=== PATIENT | male | born 1980 ===

== ENCOUNTER 2018-06-24 10:48 | Emergency (ER) | payer OTHER ==
[2018-06-24 11:22] VITALS: O2SAT 98; BMI 36.3
[2018-06-24] MEDS ORDERED: Clindamycin 600mg/50ml NS 600 MG/50 ML BAG IVPB ONE (12:37)
[2018-06-24] MEDS ORDERED: Sodium Chloride 0.9% 1,000 ML IV STA (12:37)
[2018-06-24 13:44] LABS: BASO # 0.1 K/uL (0.0-0.2); BASO % 0.9 % (0.0-2.0); EOS # 0.5 K/uL (0.0-0.7); EOS % 8.8 % (0.0-4.0); HEMOGLOBIN 14.8 g/dL (12.0-18.0); LYMPH # 1.7 K/uL (1.0-4.3); LYMPH % 31.6 % (20.0-40.0); MEAN CORPUSCULAR HEMOGLOBIN 26.7 pg (27.0-31.0); MEAN CORPUSCULAR HGB CONC 33.8 g/dL (33.0-37.0); MEAN PLATELET VOLUME 8.7 fl (7.2-11.7); MONO # 0.4 K/uL (0.0-0.8); MONO % 7.5 % (0.0-10.0); NEUT # 2.7 K/uL (1.8-7.0); NEUT % 51.2 % (50.0-75.0); NRBC % 0.1 % (0.0-0.0); RBC 5.54 Mil/uL (4.40-5.90); RED CELL DISTRIBUTION WIDTH 15.3 % (11.5-14.5); WHITE BLOOD COUNT 5.4 K/uL (4.8-10.8)
[2018-06-24 13:51] LABS: ALB/GLOB RATIO 1.1 (1.0-2.1); ALBUMIN 4.1 g/dL (3.5-5.0); BLOOD UREA NITROGEN 13 mg/dl (9-20); CALCIUM 9.7 mg/dL (8.4-10.2); GFR NON-AFRICAN AMERICAN > 60
[2018-06-24 13:53] LABS: ALT/SGPT 66 U/L (21-72); AST/SGOT 52 U/L (17-59)
[2018-06-24] MEDS ORDERED: Iohexol 300 100 ML IJ ONE (13:59)
[2018-06-24] MEDS ORDERED: Sodium Chloride 0.9% 50 ML IV ONE (13:59)
--- NOTE | 2018-06-24 14:54 | CT ---
Date of service: 06/24/2018 PROCEDURE: CT ORBITS WITH CONTRAST. HISTORY: right periorbital edema COMPARISON: None available. TECHNIQUE: Following administration of intravenous iodinated contrast, axial CT images of the orbits were obtained. Coronal and sagittal reformats were generated. Intravenous contrast Dose: Omnipaque 300, 95 cc Radiation dose: Total exam DLP = 864.62 mGy-cm. This CT exam was performed using one or more of the following dose reduction techniques: Automated exposure control, adjustment of the mA and/or kV according to patient size, and/or use of iterative reconstruction technique. FINDINGS: RIGHT ORBIT: RIGHT BONY ORBIT: No acute fracture or destructive bony lesion identified. RIGHT INTRAORBITAL STRUCTURES: Globe: Normal. Extraocular muscles: Normal. Post septal space: Normal. Optic Nerve: Normal. Lacrimal Apparatus: Normal. RIGHT PRESEPTAL SOFT TISSUES: There is prominent right periorbital soft tissue edema identified extending into the inferior right frontal scalp soft tissues somewhat as well as a approaching the right lateral temporal soft tissues. No emphysema changes are related there is no abscess appreciated or retained radiodense foreign body identified. No postseptal involvement. LEFT ORBIT: LEFT BONY ORBIT: No acute fracture or destructive bony lesion identified. LEFT INTRAORBITAL STRUCTURES: Globe: Normal. Extraocular muscles: Normal. Post septal space: Normal. Optic Nerve: Normal. Lacrimal Apparatus: Normal. LEFT PRESEPTAL SOFT TISSUES: Normal. OTHER: None. NASAL BONES: No fracture identified. IMPRESSION: Right preseptal periorbital cellulitis without postseptal involvement. No abscess identified or retained radiodense foreign body. No fracture or destructive bony lesion appreciated bilateral.
[2018-06-24 15:06] VITALS: BP 138/79; PULSE 84; RESP 17; TEMP 98.8
--- NOTE | 2018-06-24 15:13 | ED PDOC ---
HPI: Eye Injury/Pain Time Seen by Provider: 06/24/18 12:00 Chief Complaint (Nursing): Eye Problem Chief Complaint (Provider): Erythema around the right eye x 3 days Past Medical History Vital Signs: Last Vital Signs Temp 98.8 F 06/24/18 15:05 Pulse 84 06/24/18 15:05 Resp 17 06/24/18 15:05 BP 138/79 06/24/18 15:05 Pulse Ox 98 06/24/18 15:05 - Medical History PMH: Hypercholesterolemia - Home Medications Home Medications: Ambulatory Orders Medication Instructions Recorded Erythromycin 0.5% [Erythromycin] 1 applic OD QID #1 tube 07/16/15 Clindamycin [Cleocin] 300 mg PO QID #40 cap 06/24/18 Polymyxin/Trimethoprim Sulfate 1 drop XX Q6H 10 Days bottle 06/24/18 [Polytrim Ophth Soln] - Allergies Allergies/Adverse Reactions: Allergies Allergy/AdvReac Type Severity Reaction Status Date / Time No Known Allergies Allergy Verified 06/24/18 11:52 - Laboratory Results Result Diagrams: 06/24/18 13:15 06/24/18 13:15 - ECG O2 Sat by Pulse Oximetry: 98 Disposition - Clinical Impression Clinical Impression: Periorbital cellulitis of right eye - Patient ED Disposition Is Patient to be Admitted: No Counseled Patient/Family Regarding: Diagnosis, Need For Followup, Rx Given - Disposition Referrals: [facility] [Outside] Jean Marie Nixon MD [Staff Provider] - Disposition: Routine/Home Disposition Time: 15:09 Condition: GOOD Prescriptions: Clindamycin [Cleocin] 300 mg PO QID #40 cap Polymyxin/Trimethoprim Sulfate [Polytrim Ophth Soln] 1 drop XX Q6H 10 Days bottle Instructions: Cellulitis (Skin Infection), Adult (DC) Forms: [employer] (Maldivian)
--- NOTE | 2018-06-24 15:19 | RAD ---
Date of service: 06/24/2018 PROCEDURE: Right Index finger radiographs. HISTORY: infection COMPARISON: None. TECHNIQUE: AP radiograph of the right hand, as well as spot oblique and lateral images of index finger were obtained. FINDINGS: RIGHT INDEX FINGER: No radiographic evidence of osteomyelitis . JOINTS: Normal. SOFT TISSUES: Focal soft tissue swelling adjacent to the distal tuft. No visualized radiopaque foreign body. OTHER FINDINGS: None. IMPRESSION: Soft tissue swelling without acute articular or osseous abnormality.
== END 2018-06-24 15:15 | disposition home or self-care (01) ==
LOC: H.ER 10:48
DX: L03.213 Periorbital cellulitis (principal); E78.00 Pure hypercholesterolemia, unspecified
CPT/HCPCS: 70481; 73140; 80053; 85025; 87040; 99283; J7030; Q9967